=== PATIENT | male | born 1975 | race Caucasian/White ===

== ENCOUNTER 2016-11-04 10:18 | Emergency (ER) | payer SELFPAY ==
[~2016-11-04] VITALS: Ht 182.9 cm; Wt 89.4 kg
[~2016-11-04 10:18] MED LIST: TOPI50TA4 PO
[2016-11-04 10:32] VITALS: BP 142/97
[2016-11-04] MEDS ORDERED: TRAM-29 PO (10:54)
--- NOTE | 2016-11-04 10:55 | PHYS DOC ---
Past Medical History Past Medical History: Anxiety, Bipolar Additional Past Medical Histor: inguinal hernia Past Surgical History: Other Additional Past Surgical Histo: Lymph node removal as child Additional Information: nonsmoker Alcohol Use: Occasionally Drug Use: Methamphetamine Adult General Chief Complaint Chief Complaint: GROIN PAIN [facility] HPI Patient is a 41 year old male who presents with left inguinal hernia pain for 3 weeks. He has had the hernia for many months. The pain has been gradually increasing. He denies any nausea, vomiting, or change in bowel movements. He has not had any urinary symptoms or fever. He has never had surgery on his hernia. He is able to easily reduce the hernia. He does not have a PCP because he does not currently have insurance. Review of Systems Review of Systems Constitutional: Denies fever or chills. [] GI: Denies nausea, vomiting, bloody stools or diarrhea. Reports left inguinal hernia pain. : Denies dysuria, hematuria or urinary frequency. [] Musculoskeletal: Denies back pain or joint pain. [] Integument: Denies rash or skin lesions. [] All systems reviewed and negative unless otherwise stated in the HPI. Allergies Allergies Allergies Coded Allergies Type Severity Reaction Last Updated Verified No Known Drug Allergies 07/16/16 No Physical Exam Physical Exam Constitutional: Well developed, well nourished, no acute distress, non-toxic appearance. [] HENT: Normocephalic, atraumatic, oropharynx moist. [] Eyes: PERRLA, EOMI, conjunctiva normal, no discharge. [] Neck: Normal range of motion, no tenderness, supple, no stridor. [] Cardiovascular: Heart rate regular rhythm, no murmur. [] Lungs & Thorax: Bilateral breath sounds clear to auscultation without wheezes, rales, or rhonchi. [] Abdomen: Bowel sounds normal, soft, no tenderness, no masses, no pulsatile masses. There is an easily reducible left inguinal hernia with mild tenderness to palpation in the left groin. Skin: Warm, dry, no erythema, no rash. [] Neurologic: Alert and oriented X 3, normal motor function, normal sensory function, no focal deficits noted. [] Psychologic: Affect normal, judgement normal, mood normal. [] Current Patient Data Vital Signs Vital Signs Date Time Temp Pulse Resp B/P Pulse Ox O2 Delivery O2 Flow Rate FiO2 11/04/16 10:32 98.2 94 20 99 Room Air 98.2 EKG EKG [] Radiology/Procedures Radiology/Procedures [] Course & Med Decision Making Course & Med Decision Making Pertinent Labs and Imaging studies reviewed. (See chart for details) The patient presents with pain related to his left inguinal hernia. On exam, his abdomen is soft and nonsurgical. There is an easily reducible left inguinal hernia. He does not have any change in bowel movements or urinary symptoms. He is instructed to follow-up as an outpatient with general surgery. He is given contact information for general surgeon here. He is also recommended to follow up with the clinics through [facility] or [facility], as he does not have health insurance currently. Return precautions were discussed. He verbalizes understanding and agrees with plan. Dragon Disclaimer Dragon Disclaimer This electronic medical record was generated, in whole or in part, using a voice recognition dictation system. Departure Departure Impression: Primary Impression: Inguinal hernia Disposition: 01 HOME, SELF-CARE Condition: STABLE Referrals: SUNI RIVERA MD Patient Instructions: Hernia, [id number] Additional Instructions: You were seen today for a hernia in her groin, called an inguinal hernia. Your hernia is able to be reduced, or pushed back inside the abdomen. Your hernia will need to be repaired surgically, as it is causing new significant pain. It does not need to be repaired emergently because it is still able to be reduced. Please follow-up with the general surgeon listed below or a general surgeon of your choice. If you do not have insurance. You may follow up with the clinics through [facility] or [facility]. Please take the prescribed pain medication as directed. Do not drive or operate heavy machinery while taking pain medication. Please use a stool softener to keep your bowel movements regular, as pain medications may cause constipation, which may worsen your hernia pain. Return to emergency department if you have increased abdominal pain, change in her bowel movements, vomiting, or unable to push the hernia back in, or other new or concerning symptoms. Scripts Tramadol Hcl (Ultram)50 Mg Apooil14 Mg PO Q6H PRN PAIN #12 TAB Prov:ANGIE SINGH 11/04/16 Problem Qualifiers Primary Impression: Inguinal hernia Obstruction and gangrene presence: without obstruction or gangrene Laterality : unilateral Recurrence: not specified as recurrent Qualified Code: K40.90 - Unilateral inguinal hernia, without obstruction or gangrene, not specified as recurrent ANGIE SINGH Nov 04, 2016 10:55
[2016-11-04] MEDS ORDERED: TRAMADOL 50 MG TABLET. PO ONE (11:15)
== END 2016-11-04 11:14 | disposition home or self-care (01) ==
LOC: ER 10:18
DX: K40.91 Unilateral inguinal hernia, without obstruction or gangrene, recurrent (principal); F41.9 Anxiety disorder, unspecified; F31.9 Bipolar disorder, unspecified; F15.10 Other stimulant abuse, uncomplicated
CPT/HCPCS: 99283

== ENCOUNTER 2021-09-18 13:31 | Emergency (ER) | payer OTHER ==
[~2021-09-18] VITALS: Ht 182.9 cm; Wt 91.6 kg
[~2021-09-18 13:31] MED LIST changes: -TOPI50TA4 PO; +TOPI50TA8 PO; +TRAM-48 PO
[2021-09-18 13:44] VITALS: BP 120/81
== END 2021-09-18 15:15 | disposition left against medical advice (07) ==
LOC: ER 13:31
DX: R53.83 Other fatigue (principal); R11.0 Nausea; Z53.21 Procedure and treatment not carried out due to patient leaving prior to being seen by health care provider